=== PATIENT | female | born 1965 | race Caucasian/White ===

== ENCOUNTER 2018-04-03 10:48 | Emergency (ER) | payer OTHER ==
[~2018-04-03] VITALS: Ht 172.7 cm; Wt 80.0 kg
[~2018-04-03 10:48] MED LIST: ARIM1TAB PO; SYNT50TA PO; TEST200I13 IM; VITA100018 PO
[2018-04-03 10:55] VITALS: BP 151/91; PULSE 100; RESP 16; TEMP 98.3; O2SAT 99
[2018-04-03] MEDS ORDERED: GABA300C5 PO (11:20)
[2018-04-03] MEDS ORDERED: GEMF600T PO (11:20)
[2018-04-03] MEDS ORDERED: ANAS1TAB PO (11:20)
[2018-04-03] MEDS ORDERED: CLON0.1T PO (11:20)
[2018-04-03] MEDS ORDERED: LEVO50TA4 PO (11:20)
[2018-04-03] MEDS ORDERED: LOSA50TA PO (11:20)
[2018-04-03] MEDS ORDERED: METO25TA3 PO (11:20)
[2018-04-03] MEDS ORDERED: METF500T PO (11:20)
[2018-04-03] MEDS ORDERED: DOXY1CAP74 PO (11:20)
[2018-04-03] MEDS ORDERED: CIPROFLOXACIN 500 MG TAB PO ONE (11:30)
[2018-04-03] MEDS ORDERED: traMADol HCL 50 MG TAB PO ONE (11:30)
[2018-04-03] MEDS ORDERED: TRAM50 PO (11:40)
[2018-04-03] MEDS ORDERED: MOBI15TA PO (11:40)
[2018-04-03] MEDS ORDERED: CIPR-9 PO (11:40)
--- NOTE | 2018-04-03 11:40 | PD ---
HPI Chief Complaint: Complaint Time Seen by Provider: 11:15 Travel History International Travel<30 days: No Contact w/Intl Traveler<30days: No Traveled to known affect area: No History of Present Illness HPI 53-year-old male complains of rectal pain and penile pain. Patient status post colorectal surgery in [place] 4 days ago. Patient had Noble cath inserted 3 days ago secondary to urinary retention post surgery. Patient states that he had persistent pain on the rectum and penis. Patient was given prescription of hydrocodone which he is taking at every 4 hours for pain. Patient states that he is running out of his pain medication. Patient denies any other problem. Patient denies any fever chills. Patient states that the Noble has been draining well. PFSH Past Medical History Autoimmune Disease: Yes (QUEST. LUPUS PER PT;NEVER DX) Diabetes: Yes Diminished Hearing: No Gastrointestinal Disorders: Yes (PERITONITIS ) Glaucoma: No Genitourinary: Yes (STRESS INCONT) Hepatitis: Yes (B) Integumentary: Yes (PSORIASIS) Immunizations Current: No Migraines: Yes (QUESTIONABLE PER PT) Seizures: Yes Thyroid Disease: No Ulcer: Yes (CHILDHOOD) Menopausal: No : 1 Para: 1 Dilation and Curettage (D&C): Yes Past Surgical History Abdominal Surgery: Yes (ABDOMINOPLASTY) Appendectomy: Yes Cardiac Surgery: No Ear Surgery: No Endocrine Surgery: No Eye Surgery: No Genitourinary Surgery: Yes (URETHRAL SURGERY) Gynecologic Surgery: Yes (02/01 LEEP D&C ;) Hysterectomy: No Tonsillectomy: Yes Other Surgery: Yes (BREAST RED,BRACHIAL,FLANK PLASTY) Social History Alcohol Use: No Tobacco Use: Yes (1PPD) Substance Use: Yes (OCCAS. MARIJUANA/COCAINE) Allergies-Medications (Allergen,Severity, Reaction): Coded Allergies: No Known Allergies (Verified , 08/10/15) Reported Meds & Prescriptions Reported Meds & Active Scripts Active Reported Anastrozole 1 Mg Tab 1 Mg PO DAILY Levothyroxine (Levothyroxine Sodium) 50 Mcg Tab 50 Mcg PO DAILY Doxycycline 40 Mg Cap 40 Mg PO DAILY Losartan (Losartan Potassium) 50 Mg Tab 50 Mg PO DAILY Clonidine (Clonidine HCl) 0.1 Mg Tab 0.1 Mg PO BID Metoprolol Tartrate 25 Mg Tab 25 Mg PO DAILY Gabapentin 300 Mg Cap 300 Mg PO HS Gemfibrozil 600 Mg Tab 600 Mg PO BIDAC Take 30 minutes prior to breakfast and dinner. Metformin (Metformin HCl) 500 Mg Tab 500 Mg PO DAILY With a meal Review of Systems General / Constitutional: No: Fever Eyes: No: Visual changes HENT: No: Headaches Cardiovascular: No: Chest Pain or Discomfort Respiratory: No: Shortness of Breath Gastrointestinal: No: Abdominal Pain Genitourinary: No: Dysuria Musculoskeletal: No: Pain Skin: No Rash Neurologic: No: Weakness Psychiatric: No: Depression Endocrine: No: Polydipsia Hematologic/Lymphatic: No: Easy Bruising Physical Exam Narrative GENERAL: Well-nourished, well-developed patient. SKIN: Focused skin assessment warm/dry. HEAD: Normocephalic. EYES: No scleral icterus. No injection or drainage. NECK: Supple, trachea midline. No JVD or lymphadenopathy. CARDIOVASCULAR: Regular rate and rhythm without murmurs, gallops, or rubs. RESPIRATORY: Breath sounds equal bilaterally. No accessory muscle use. GASTROINTESTINAL: Abdomen soft, non-tender, nondistended. MUSCULOSKELETAL: No cyanosis, or edema. BACK: Nontender without obvious deformity. No CVA tenderness. exam: Noble cath in place. Urine with mild redness and mild cloudiness. Rectal exam shows healing surgical wound. No redness no discharge noted. No active bleeding. Data Data Last Documented VS Vital Signs Date Time Temp Pulse Resp B/P (MAP) Pulse Ox O2 Delivery O2 Flow Rate FiO2 04/03/18 10:55 98.3 100 16 151/91 (111) 99 Orders Orders Ciprofloxacin (Cipro) (04/03/18 11:30) Tramadol (Ultram) (04/03/18 11:30) MDM Medical Decision Making Medical Screen Exam Complete: Yes Emergency Medical Condition: Yes Differential Diagnosis Differential diagnosis including pain postsurgical procedure, cellulitis, abscess. Narrative Course 53-year-old male complaint rectal pain and penile pain. Status post colorectal surgery and Noble cath placement. Urine with mild cloudiness mild redness. Cipro 500 mg p.o. given. Ultram 50 mg p.o. given. Diagnosis Primary Impression: Rectal pain Additional Impression: UTI (urinary tract infection) Qualified Codes: N30.00 - Acute cystitis without hematuria Patient Instructions: General Instructions Additional Instructions: Ultram as needed for pain. Cipro as directed. Follow-up with personal physician. Med/Other Pt SpecificInfo: Prescription(s) given Scripts Meloxicam (Mobic) 15 Mg Tab 15 MG PO DAILY for Pain, #20 TAB 0 Refills Prov: Jerald Blake MD 04/03/18 Tramadol (Ultram) 50 Mg Tab 50 MG PO Q6H Y for PAIN, #12 TAB 0 Refills Prov: Jerald Blake MD 04/03/18 Ciprofloxacin (Cipro) 500 Mg Tab 500 MG PO BID for Infection, #14 TAB 0 Refills Prov: Jerald Blake MD 04/03/18 Disposition: 01 DISCHARGE HOME Condition: Stable Jerald Blake MD Apr 03, 2018 11:40
[2018-04-03 12:01] LABS: BACTERIA, URINE OCC /hpf; BILIRUBIN, URINE NEG (NEG); BLOOD, URINE LARGE (NEG); GLUCOSE,URINE NEG (NEG); KETONE, URINE 80 mg/dL (NEG); MUCUS URINE FEW /lpf (OCC); NITRITE,URINE NEG (NEG); SQUAMOUS EPITHELIAL CELL URINE 1 /hpf (0-5); URINE COLOR RED (YELLW/STRAW); URINE LEUKOCYTE ESTERASE SMALL (NEG)
== END 2018-04-03 12:14 | disposition home or self-care (01) ==
LOC: NEPD 10:48
DX: K62.89 Other specified diseases of anus and rectum (principal); N30.00 Acute cystitis without hematuria; F17.200 Nicotine dependence, unspecified, uncomplicated; E11.9 Type 2 diabetes mellitus without complications; Z79.84 Long term (current) use of oral hypoglycemic drugs
CPT/HCPCS: 81001; 87086; 99283